=== PATIENT | male | born 1965 | race Caucasian/White ===

== ENCOUNTER 2020-01-22 02:09 | Outpatient (CLI) | payer BC, SELFPAY ==
[2020-01-22 16:12] LABS: HCT 42.7 % (40.0-50.0); HGB 14.1 g/dL (13.5-17.5); Mean Corpuscular Hemoglobin 30.5 pg (27.0-33.0); Mean Corpuscular Volume 92.2 fL (80-95); Mean Platelet Volume 9.6 fL (8.0-11.0); Platelet Count 383 x1000/uL (130-400); RBC 4.63 m/cumm (4.50-6.00); RBC Distribution Width 12.8 % (11.8-14.1); White Blood Cell Count 8.25 k/cumm (4.4-10.8)
[2020-01-23 12:31] LABS: PSA, Screening 0.6 ng/mL (0.0-3.5)
== END 2020-01-22 02:29 ==
PROVIDERS: PCP Emergency Medicine; Visit Provider Emergency Medicine
DX: K51.90 Ulcerative colitis, unspecified, without complications (principal); Z12.5 Encounter for screening for malignant neoplasm of prostate
CPT/HCPCS: 36415; 84153; 85027

== ENCOUNTER 2021-10-19 02:01 | Outpatient (CLI) | payer SELFPAY ==
--- NOTE | 2021-10-19 07:00 | DI.US_ITS ---
Exam(s) US CAROTID EXAM: US CAROTID CLINICAL HISTORY: Prescyncope symptoms, no obvious risk factors R42 DIZZINESS AND GIDDINESS TECHNIQUE: Ultrasound performed using standard protocol. COMPARISON: No exams were available for comparison FINDINGS: Bilateral duplex carotid ultrasound was performed the [facility] 2D and Doppler flow velocity evaluat ion. There is bilateral antegrade vertebral flow. Flow velocities in the common, internal, and exte rnal carotid arteries are within normal limits bilaterally. There is little if any visible atheromat ous plaque in the region surveyed. IMPRESSION: No evidence of a hemodynamically significant carotid stenosis. DATA REPOSITORY:
--- NOTE | 2021-10-19 07:00 | DI.RAD_ITS ---
Exam(s) XR CHEST 2V PA LATERAL EXAM: XR CHEST 2V PA LATERAL CLINICAL HISTORY: B/L, L worse than R lower chest [id number] CHEST PAIN TECHNIQUE: COMPARISON: No exams were available for comparison FINDINGS: The heart is not enlarged. Lungs are generally clear with perhaps mild changes of scarring. No pleu ral effusion seen. IMPRESSION: No evidence of acute process. RADIATION DOSE DELIVERED: Total DLP
== END 2021-10-19 02:21 ==
PROVIDERS: PCP Family Medicine; Visit Provider Family Medicine
DX: R07.89 Other chest pain (principal); R42 Dizziness and giddiness; R55 Syncope and collapse
CPT/HCPCS: 71046; 93880

== ENCOUNTER 2021-10-19 03:11 | Outpatient (CLI) | payer SELFPAY ==
[2021-10-19 07:15] LABS: Abs Immature Grans 0.04 10^3/uL (0.0-0.06); Absolute Basophil Count 0.09 10^3/uL (0.0-0.2); Absolute Lymphocyte Count 1.75 10^3/uL (1.2-3.4); Absolute Monocyte Count 0.69 10^3/uL (0.1-0.8); Basophils % 0.9; Eosinophils % 2.1; HGB 14.2 g/dL (13.5-17.5); Immature Grans % 0.4; Lymphocytes % 18.3; MCH 29.2 pg (27.0-33.0); MCHC 31.6 % (32.0-36.0); MCV 92.6 fL (80-95); MPV 8.7 fL (8.0-11.0); Monocytes % 7.2; Neutrophils % 71.1; Nucleated RBC 0 %; Platelet Count 430 10^3/uL (130-400); RBC 4.86 10^6/uL (4.36-5.78); RDW 11.9 % (11.8-14.1); WBC 9.57 10^3/uL (4.4-10.8)
[2021-10-19 08:30] LABS: ALT 22 U/L (16-63); AST 18 U/L (15-37); Albumin 3.7 g/dL (3.4-5.0); Alkaline Phosphatase 85 U/L (46-116); BUN 11 mg/dL (7-18); Bilirubin, Total 0.7 mg/dL (0.2-1.0); CREATININE 1.1 mg/dL (0.70-1.30); Calcium 8.9 mg/dL (8.5-10.1); Chloride 104 mmol/L (98-107); Glucose 90 mg/dL (74-106); Potassium 4.4 mmol/L (3.5-5.1); Sodium 137 mmol/L (136-145); TSH (W/Ref FT4) 1.85 uIU/mL (0.36-3.74); Total Protein 7.4 g/dL (6.4-8.2)
[2021-10-20 14:44] LABS: Calculated LDL 76 mg/dL (<100); Cholesterol 136 mg/dL (<200); HDL Cholesterol 37 mg/dL (40-60); Triglyceride 118 mg/dL (<150)
== END 2021-10-19 03:12 | disposition home or self-care (01) ==
LOC: LBO 03:12
PROVIDERS: PCP Family Medicine; Referring Provider Family Medicine
DX: R07.89 Other chest pain (principal); R42 Dizziness and giddiness; R55 Syncope and collapse
CPT/HCPCS: 36415; 80053; 80061; 84443; 85025

== ENCOUNTER 2021-11-10 00:59 | Outpatient (CLI) | payer SELFPAY ==
--- NOTE | 2021-11-10 06:00 | ETT_ITS ---
APPROVED REPORT Exam: Exercise Treadmill Patient Location: Out-Patient Room/Bed: Stress Nurse: Coty Sorto RN Ordering Provider:CECILIO GONZALEZ, Contact Number: [phone] BMI: 23.70 Baseline Rhythm: Sinus Rhythm Indications: Intermittent chest pain, chest discomfort Medical History Medical History: Postural dizziness w/ presyncope, tobacco use disorder (chews) Cardiac Medications: Sildenafil Allergies: NKA Cardiac Risk Factors: Tobacco use (chew) Previous Cardiac Procedures: None Pretest Chest Pain Characteristics: None Exercise History: Sedentary Physical Disabilities: None Lung Sounds: Clear to auscultation Heart Sounds: Regular Stress Test Details Test: Exercise stress testing was performed using a Ayaz protocol. Rest Stress HR Resting HR Supine: 60 bpm Max Heart Rate (APMHR): 165 bpm Resting HR Standin bpm Target HR (85% APMHR): 140 bpm Max HR Achieved: 143 bpm % of APMHR: 86 Recovery HR: 81 bpm HR response to stress: Normal HR response to stress BP Resting BP Supine: 112/78 mmHg Resting BP Standin/70 mmHg Max BP: 148/78 mmHg Recovery BP: 120/78 mmHg BP response to stress: Normal blood pressure response to stress. ECG Resting ECG: Sinus Rhythm Ectopy: None Stress ECG: Sinus Tachycardia ST Change: No significant ST segment changes noted Arrhythmia: None Recovery ECG: Sinus Rhythm Recovery ST Change: No significant ST segment changes noted Recovery Arrhythmia: Occasional PVCs during first minute of recovery Clinical Reason for Termination: Fatigue, Dyspnea Stress Symptoms: Leg Fatigue, Dyspnea Exercise duration: 11 min59 sec Highest Stage Reached: Stage 4: 4.2 mph at 16% grade. Exercise capacity: 13.48 METs Hill Treadmill Score: 11.0 Rate Pressure Product: [id number] Stress ECG Conclusion 1. The resting electrocardiogram was within normal limits 2. Patient exercised on the Ayaz protocol and completed a workload of 13.48 METS, limited by fatigue 3. Normal heart rate and blood pressure response to exercise 4. The patient achieved 86% of predicted heart rate for age 5. There was no electrocardiographic evidence of myocardial ischemia 6. Rare PVCs were seen Hill Treadmill Score is 11.0 which is Low risk. Stress Test Summary STAGE Time (mins) Speed (mph) Grade (%) HR BP SYMPTOMS METS Supine 60 112/78 Standing 81 104/70 SpO2 97% 1 3 1.7 10 94 120/70 SpO2 97% 4.6 2 6 2.5 12 104 132/70 SpO2 97% 7 3 9 3.4 14 122 140/78 Mild SOB, SpO2 96% 10.2 4 12 4.2 16 143 Moderate SOB, SpO2 96% 12.9 1 min recovery 130 128/80 Mild SOB, SpO2 98% 3 min recovery 91 148/78 SOB resolved, SpO2 98% 6 min recovery 81 120/78 SpO2 97%
== END 2021-11-10 01:19 ==
LOC: DI 01:00
PROVIDERS: PCP Family Medicine; Visit Provider Family Medicine
DX: R07.89 Other chest pain (principal)
CPT/HCPCS: 93017

== ENCOUNTER 2023-07-22 22:53 | Emergency (ER) | payer OTHER, SELFPAY ==
[2023-07-22 23:36] VITALS: BP 114/78; PULSE 70; RESP 16; TEMP 36.8; O2SAT 97
--- NOTE | 2023-07-22 23:43 | ED.GENADUL_ITS ---
Discharge Plan Disposition Patient Disposition: Home Condition: Good Discharge Details Clinical Impression: Pain, dental Primary Care Provider: Roman Aviles ED Provider: Tuan Navarro Home Meds and New Rx's Prescriptions: New penicillin V potassium 500 mg tablet 500 mg PO QID 10 Days Qty: 40 0RF No Action sildenafil 25 mg tablet 20 mg PO DAILY PRN Rx Instructions: administer 30 minutes to 4 hours before activity naproxen 500 mg tablet 500 mg PO BID PRN (Reason: pain) Qty: 60 3RF acetaminophen [Tylenol] 325 mg capsule 650 mg PO ONCE PRN Patient Comments: took 6 at once today calcium carbonate [Tums] 200 mg calcium (500 mg) tablet,chewable 200 mg PO QID PRN metronidazole 500 mg tablet 500 mg PO BID Rx Instructions: 03/05/23: x10 days out of every month. If needed more often, can try to give 2 week break instead of a 3 week break. Discharge Instructions Instructions: Toothache (ED) Additional Instructions: The block we administered should help improve your pain. Please take 1000 mg of Tylenol every 6 hours to help with the inflammation and pain. This is the maximum doses. Please take the antibiotic as directed to help with the infection in your tooth. Please use the dental list that we have provided to contact the dentist for prompt follow-up and evaluation for tooth removal. If you notice any worsening of your symptoms, or any new symptoms such as difficulty swallowing, difficulty breathing, vomiting, diarrhea, fever, chills, shortness of breath, chest pain, numbness, weakness, or fainting , please return immediately to the emergency department for reevaluation. Please follow up with your primary care provider as soon as possible for reassessment and reevaluation. As always, it was a pleasure participating in your medical care today. Referrals: Roman Aviles DO [Primary Care Provider] - Medical Decision Making 57-year-old male with a past medical history of ulcerative colitis, presents today for evaluation of left upper posterior dental pain. Patient states that has been present for the last 2 hours, he took Tylenol which slightly relieved the pain. He denies any vomiting or discharge. No fever or chills. He does not currently have a dentist. Pain is made worse with chewing. No other complaints at this time. No other modifying factors. Of note the patient was previously on metronidazole for his ulcerative colitis but is not on any now currently. Patient demonstrates mild dental caries in the left upper molars. No periapical abscess. Recent benefits were discussed for dental block, patient consented for dental block. Dental block was given patient had notable improvement of his pain. Patient will be discharged home with penicillin, he is being given 2 days of pills here secondary to the New Year's holiday. Recommend continue Tylenol at home. Recommend avoidance of Motrin. Discussed red flags which return. I have extensively reviewed the treatment plan and discharge instructions with the patient. I have addressed all patient concerns at this time. The patient was made aware of what symptoms to monitor for that would warrant a return to the emergency department. Discussed the plan with the patient, they demonstrate verbal understanding and agreement with our assessment and plan at this time. The documentation in this chart was dictated using [employer] dictation software. Please excuse any dictation errors. HPI General Date/Time Provider Initiated Documentation: 07/22/23 23:31 . HPI Narrative: 57-year-old male with a past medical history of ulcerative colitis, presents today for evaluation of left upper posterior dental pain. Patient states that has been present for the last 2 hours, he took Tylenol which slightly relieved the pain. He denies any vomiting or discharge. No fever or chills. He does not currently have a dentist. Pain is made worse with chewing. No other complaints at this time. No other modifying factors. Of note the patient was previously on metronidazole for his ulcerative colitis but is not on any now currently. Related Data Home Medications Medication Instructions Recorded Confirmed sildenafil 25 mg tablet 20 mg PO DAILY PRN 01/21/20 07/22/23 acetaminophen 325 mg capsule 650 mg PO ONCE PRN 02/02/20 07/22/23 (Tylenol) calcium carbonate 200 mg calcium 200 mg PO QID PRN 10/11/21 07/22/23 (500 mg) chewable tablet (Tums) naproxen 500 mg tablet 500 mg PO BID PRN pain #60 tabs 09/11/22 07/22/23 metronidazole 500 mg tablet 500 mg PO BID 03/13/23 07/22/23 penicillin V potassium 500 mg 500 mg PO QID 10 days #40 tabs 07/22/23 tablet Previous Rx's Medication Instructions Recorded naproxen 500 mg tablet 500 mg PO BID PRN pain #60 tabs 09/11/22 penicillin V potassium 500 mg 500 mg PO QID 10 days #40 tabs 07/22/23 tablet Allergies Allergy/AdvReac Type Severity Reaction Status Date / Time No Known Allergies Allergy Unverified 07/22/23 23:34 General Stated Complaint: DentalOral ANTHONY: 4 Review of Systems All systems reviewed & are unremarkable except as noted in HPI and below PFSH All Active Problems Pain, dental (Acute) Enteritis (Acute ~10/2022) rectal cuff--Active chronic nonspecific enteritis [facility] Pouchitis (Acute ~10/2022) pouchoscopy 11/10/22 [facility] Acromioclavicular arthrosis (Acute) Osteopenia (Acute) Chest discomfort (Acute) Postural dizziness with presyncope (Acute) Tobacco use disorder, continuous (Acute) CHEWS TOBACCO Injection education, encounter for (Acute) RLQ abdominal pain (Acute) Incisional hernia (Acute) Ulcerative colitis (Chronic) Medical History 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 Family History Brother Asthma Cancer Depression Social History Smoking/Tobacco Use Status: Current every day Tobacco Type: smokeless tobacco Tobacco: How many years used: 40 Smokeless tobacco user: chewing tobacco Quit status: considering quitting Smoking risk assessment performed?: Yes Alcohol Intake: current Alcohol Intake frequency: holidays/special occasions only Drug use: Never Substance use type: marijuana Adopted: No Caregiver/Support person: No Household members: spouse Housing: house Number of Children: 5 number of grandchildren: 3 Communication Needs: None Education Level: high school Do you need help understanding health information?: Never current occupation: [employer] Pets and animals: Yes (1,1) Pets and animals: cat(s) and dog(s) Sexually active: Yes Do you think of yourself as: straight/heterosexual Current gender identity: male What is your relationship status?: How often do you talk on the phone with friends or family?: twice per week How often do you get together with friends or relatives?: twice per week Do you belong to any clubs or organized social groups?: no Panel score (0-1 are the most socially isolated patients): 2 What type of physical activity do you participate in: none Darlene/Christian: None Special darlene needs: No Seatbelt use: always Helmet use: No Drive intox or ride w/intox bulk tank driver: No Do you feel safe at home: Yes Do you feel safe in your relationship?: Yes Exam Narrative Exam Narrative: 1.Const: Well-nourished, Well-developed, appearing stated age 2.Eyes: PERRL, no conjunctival injection, and symmetrical lids. 3.ENT: Atraumatic external nose and ears. Moist MM. Neck: Symmetric, trachea midline, No thyromegaly. Mild dental caries in the posterior left upper molars. No periapical abscess. 4.CVS: +S1/S2, No murmurs or gallops. Peripheral pulses 2+ and equal in all extremities. Brisk capillary refill in all extremities. 5.RESP: Unlabored respiratory effort. Clear to auscultation bilaterally. No wheezes rales or rhonchi 6.GI: Soft, Nontender/Nondistended, No hepatosplenomegaly. No guarding or rebound. 7.MSK: Normocephalic/Atraumatic, Extremities w/o deformity or ttp No cyanosis or clubbing, Normal movement of all extremities 8.Skin: Warm, Dry. No rashes or lesions. 9.Neuro: pharmacist II-XII grossly intact. Sensation grossly intact, no focal neurologic deficits. 10.Psych: (AAO) x3. Appropriate mood and affect Course Vital Signs Vital signs: Vital Signs Temperature 36.8 C 07/22/23 23:36 Pulse 70 07/22/23 23:36 Respiratory Rate 16 07/22/23 23:36 Blood Pressure 114/78 07/22/23 23:36 Pulse Oximetry 97 07/22/23 23:36 Temperature 36.8 C 07/22/23 23:36 Temperature Source Axillary 07/22/23 23:36 Pulse 70 07/22/23 23:36 Respiratory Rate 16 07/22/23 23:36 Respiratory Effort Normal, Non-Labored 07/22/23 23:42 Blood Pressure 114/78 07/22/23 23:36 Blood Pressure Position Sitting 07/22/23 23:36 Pulse Oximetry 97 07/22/23 23:36 Oxygen Delivery Method Room Air 07/22/23 23:36 Oxygen Flow Rate 0 07/22/23 23:36 Pain Level 10 07/22/23 23:36 Procedures Nerve Block Nerve Block 1: Time out performed: Yes Local Anesthetic: Bupivicaine 0.25% Amount of anesthesia used (mL): 6 Side: left Intraoral Nerve Block: superior alveolar Procedure Successful: Yes Patient Tolerated Procedure: well and no complications Complications: none
[2023-07-22] MEDS: Bupivacaine 0.5% Pres-Free 30 ML VIAL (23:52)
[2023-07-22] MEDS: Penicillin V POTASSIUM 500 MG TAB, 4 TABS/BTL PO (23:53)
[2023-07-22] MEDS: Penicillin V POTASSIUM 500 MG TAB, 4 TABS/BTL 2000 MG (23:54)
== END 2023-07-22 23:56 | disposition home or self-care (01) ==
PROVIDERS: Emergency Provider Student in an Organized Health Care Education/Training Program; PCP Family Medicine
DX: K08.89 Other specified disorders of teeth and supporting structures (principal)
CPT/HCPCS: 64400